=== PATIENT | female | born 1970 | race Two or more races ===

== ENCOUNTER 2023-06-12 04:37 | Day surgery (SDC) | payer OTHER ==
[2023-06-09 13:11] VITALS: BMI 33.3
[2023-06-12 11:29] VITALS: BP 138/53; PULSE 81; RESP 20; TEMP 97.9
== END 2023-06-12 11:35 | disposition home or self-care (01) ==
LOC: JASU-ENDO 04:37
PROVIDERS: ATTEND Internal Medicine Gastroenterology
PROC: 0DBN8ZX Excision of Sigmoid Colon, Via Natural or Artificial Opening Endoscopic, Diagnostic (ICD-10-PCS; 2023-06-12)
PROC: 0DBC8ZX Excision of Ileocecal Valve, Via Natural or Artificial Opening Endoscopic, Diagnostic (ICD-10-PCS; principal; 2023-06-12 10:00)
DX: Z12.11 Encounter for screening for malignant neoplasm of colon (principal); C7A.029 Malignant carcinoid tumor of the large intestine, unspecified portion; K63.5 Polyp of colon; K57.30 Diverticulosis of large intestine without perforation or abscess without bleeding; Z80.0 Family history of malignant neoplasm of digestive organs
CPT/HCPCS: 81025; 88305-TC; 88341-TC; 88342-TC

== ENCOUNTER 2023-08-28 04:03 | Inpatient (IN) | payer OTHER ==
[2023-08-22 14:55] VITALS: BMI 34.1
[~2023-08-28 04:03] MED LIST: BUPIVACAINE HCL/PF 0.25% (2.5MG/ML) 10 ML VIAL IJ ONE
[2023-08-28] MEDS ORDERED: ROCURONIUM BROMIDE 50 MG/5 ML SYRINGE ONE ×2 (07:43→11:02)
[2023-08-28] MEDS ORDERED: DEXAMETHASONE SOD PHOSPHATE 4 MG/1 ML VIAL ONE (07:43)
[2023-08-28] MEDS ORDERED: PROPOFOL 40 ML ONE (07:43)
[2023-08-28] MEDS ORDERED: SUCCINYLCHOLINE CHLORIDE 200 MG/10 ML SYRINGE ONE (07:43)
[2023-08-28] MEDS ORDERED: MIDAZOLAM HCL 2 MG/2 ML SINGLE DOSE VIAL ONE (07:44)
[2023-08-28] MEDS ORDERED: BUPIVACAINE HCL/PF 0.25% (2.5MG/ML) 10 ML VIAL ONE (08:01)
[2023-08-28] MEDS ORDERED: cefOXitin SODIUM 2 GM VIAL (RESTRICTED TO ID) IVPB ONE ×2 (08:02→10:26)
[2023-08-28] MEDS ORDERED: HEPARIN NA (PORCINE) 5,000 UNITS/ML 1ML VIAL ONE (08:02)
[2023-08-28] MEDS ORDERED: PROMETHAZINE HCL 25 MG/1 ML VIAL IVPB PRN (08:38)
[2023-08-28] MEDS ORDERED: ONDANSETRON 4 MG/2 ML VIAL IVPUSH PRN ×3 (08:38→14:19)
[2023-08-28] MEDS ORDERED: LACTATED RINGERS SOLUTION 1,000 ML IV SCH ×2 (08:45→14:16)
[2023-08-28] MEDS ORDERED: INDOCYANINE GREEN 25 MG/10 ML VIAL IVPUSH ONE (09:09)
[2023-08-28] MEDS ORDERED: CEFOXITIN SODIUM 2 GM in DEXTROSE 5%-WATER - 100 ML IVPB ONE (09:19)
[2023-08-28] MEDS ORDERED: BUPIVACAINE HCL/PF 0.25% (2.5MG/ML) 10 ML VIAL IJ ONE (10:54)
[2023-08-28] MEDS ORDERED: SUGAMMADEX SODIUM 200 MG/2 ML VIAL ONE (11:48)
[2023-08-28] MEDS ORDERED: PROPOFOL 20 ML ONE (13:00)
[2023-08-28] MEDS ORDERED: BACITRACIN ZINC 15 GM TUBE TOPICAL OINTMENT ONE (13:30)
[2023-08-28] MEDS ORDERED: oxyCODONE HCL 5 MG TABLET PO PRN (14:16)
[2023-08-28] MEDS ORDERED: ACETAMINOPHEN INJECTION 100 ML IVPB ONE (15:41)
[2023-08-28] MEDS: ACETAMINOPHEN 1000 MG/100 ML BAG IVPB PRN (15:57)
[2023-08-28] MEDS: oxyCODONE HCL 5 MG TABLET PO PRN ×2 (17:21→23:20)
[2023-08-28] MEDS: morphine SULFATE 4 MG/ML VIAL IVPUSH PRN (20:06)
[2023-08-29] MEDS: ACETAMINOPHEN 1000 MG/100 ML BAG IVPB PRN (00:15)
[2023-08-29] MEDS: morphine SULFATE 4 MG/ML VIAL IVPUSH PRN ×2 (01:08→06:59)
[2023-08-29] MEDS: oxyCODONE HCL 5 MG TABLET PO PRN ×4 (06:21→21:43)
[2023-08-29 10:17] LABS: BASO % 0.1 % (0-2.0); EOS % 0.1 % (0-4.5); HEMATOCRIT 34.6 % (32.4-45.2); HEMOGLOBIN 11.5 GM/dL (10.7-15.3); LYMPH % 11.8 % (8-40); MCH 27.9 pg (25.7-33.7); MCHC 33.2 g/dl (32.0-36.0); MEAN CELL VOLUME 83.8 fl (80-96); MEAN PLT VOLUME 7.7 fl (7.5-11.1); MONO % 9.1 % (3.8-10.2); NEUT % 78.9 % (42.8-82.8); PLATELET COUNT 237 10^3/uL (134-434); RBC 4.12 M/mm3 (3.60-5.2); RDW 14.9 % (11.6-15.6); WHITE BLOOD COUNT 9.7 K/mm3 (4.0-10.0)
[2023-08-29] MEDS: ENOXAPARIN NA (PORCINE) 40 MG/0.4 ML DISP.SYRIN SQ SCH (10:17)
[2023-08-29] MEDS: FAMOTIDINE 20 MG TABLET PO SCH (10:18)
[2023-08-29 10:30] LABS: CALCIUM 8.8 mg/dL (8.5-10.1)
[2023-08-29 10:34] LABS: BLOOD UREA NITROGEN 7.9 mg/dL (7-18); CREATININE 0.7 mg/dL (0.55-1.3)
[2023-08-29] MEDS: ACETAMINOPHEN 500 MG TABLET (FP) PO SCH ×2 (11:24→19:42)
[2023-08-29] MEDS: IBUPROFEN 600 MG TABLET (FP) PO SCH ×2 (13:59→22:19)
[2023-08-29] MEDS: SUCRALFATE 1 GM/10 ML UNIT DOSE CUPS PO PRN (15:04)
[2023-08-30] MEDS: ACETAMINOPHEN 500 MG TABLET (FP) PO SCH ×2 (01:30→10:20)
[2023-08-30] MEDS: SUCRALFATE 1 GM/10 ML UNIT DOSE CUPS PO PRN (02:55)
[2023-08-30] MEDS: oxyCODONE HCL 5 MG TABLET PO PRN (06:11)
[2023-08-30] MEDS: IBUPROFEN 600 MG TABLET (FP) PO SCH ×2 (06:53→14:10)
[2023-08-30 09:34] LABS: BASO % 0.3 % (0-2.0); HEMATOCRIT 34.7 % (32.4-45.2); HEMOGLOBIN 11.9 GM/dL (10.7-15.3); LYMPH % 18.8 % (8-40); MCH 28.5 pg (25.7-33.7); MCHC 34.1 g/dl (32.0-36.0); MEAN CELL VOLUME 83.7 fl (80-96); MEAN PLT VOLUME 7.4 fl (7.5-11.1); MONO % 8.9 % (3.8-10.2); PLATELET COUNT 204 10^3/uL (134-434); RBC 4.15 M/mm3 (3.60-5.2); RDW 15.6 % (11.6-15.6); WHITE BLOOD COUNT 7.2 K/mm3 (4.0-10.0)
[2023-08-30 09:43] LABS: POTASSIUM 3.7 mmol/L (3.5-5.1)
[2023-08-30 09:46] LABS: BLOOD UREA NITROGEN 9.7 mg/dL (7-18); MAGNESIUM 2.2 mg/dL (1.8-2.4)
[2023-08-30 09:49] LABS: CREATININE 0.8 mg/dL (0.55-1.3)
[2023-08-30 10:19] VITALS: RESP 18
[2023-08-30] MEDS: FAMOTIDINE 20 MG TABLET PO SCH (10:22)
[2023-08-30] MEDS: ENOXAPARIN NA (PORCINE) 40 MG/0.4 ML DISP.SYRIN SQ SCH (10:22)
[2023-08-30] MEDS ORDERED: SIMETHICONE 80 MG TAB.CHEW (FP) PO PRN (13:38)
[2023-08-30] MEDS ORDERED: LACTATED RINGERS SOLUTION 1,000 ML/1,000 ML INFUS.BAG IV ONE (13:38)
[2023-08-30 16:03] VITALS: BP 143/88; PULSE 92; TEMP 99
== END 2023-08-30 16:49 | disposition home or self-care (01) | DRG 828 ==
LOC: J2C 04:03 → EDSTATUS 11:30 → J8W 16:46
PROVIDERS: ADMIT Internal Medicine; ATTEND Nurse Practitioner Acute Care
PROC: 0DTB4ZZ Resection of Ileum, Percutaneous Endoscopic Approach (ICD-10-PCS; 2023-08-28)
PROC: 0DTF4ZZ Resection of Right Large Intestine, Percutaneous Endoscopic Approach (ICD-10-PCS; principal; 2023-08-28 11:30)
DX: C7A.1 Malignant poorly differentiated neuroendocrine tumors (principal); K21.9 Gastro-esophageal reflux disease without esophagitis; E66.9 Obesity, unspecified; Z68.34 Body mass index [BMI] 34.0-34.9, adult
CPT/HCPCS: 36415; 80048; 81025; 83735; 85025; 86140; 86850; 86900; 86901; 88309-TC; 88329; 94760; 97116-GP; 97161-GP; J1644